=== PATIENT | male | born 1975 | race American Indian/Alaskan Native ===

== ENCOUNTER 2016-12-30 10:10 | Emergency (ER) | payer BC, OTHER ==
[2016-12-30 10:18] VITALS: BP 133/92
--- NOTE | 2016-12-30 13:28 | Emergency Department Report ---
ED ENT HPI - General Chief complaint: Dental/Oral Stated complaint: TOOTH PAIN/BROKEN Time Seen by Provider: 12/30/16 13:23 Source: patient Mode of arrival: Ambulatory Limitations: No Limitations - History of Present Illness Initial comments: 41-year-old male with past medical history none presents with complaint of fractured right upper premolar. Patient states he is attempting to see a dentist this Saturday has a scheduled appointment for possible canal. Patient denies any fever or chills no pus drainage from mouth no difficulty swallowing but states he has pain with chewing and pain radiating from the tooth. MD complaint: tooth pain Location: tooth # (5/6) Severity scale (0 -10): 6 Quality: sharp Consistency: constant Improves with: none Worsens with: none Context- Dental: history of dental caries Associated Symptoms: gum swelling - Related Data Previous Rx's Medication Instructions Recorded Last Taken Type Penicillin Vk [Veetids TAB] 500 mg PO QID #40 tablet 01/08/16 Unknown Rx Acetaminophen/Codeine 1 tab PO Q6H PRN #20 tab 12/30/16 Unknown Rx [Acetaminophen-Codeine #3 TAB] Amoxicillin 500 mg PO TID #30 capsule 12/30/16 Unknown Rx Chlorhexidine Mouthwash [Peridex] 20 ml MM TID #1 bottle 12/30/16 Unknown Rx Ibuprofen [Motrin 600 MG tab] 600 mg PO Q8H PRN #40 tablet 12/30/16 Unknown Rx Allergies Allergy/AdvReac Type Severity Reaction Status Date / Time No Known Allergies Allergy Verified 01/08/16 05:38 ED Dental HPI - General Chief complaint: Dental/Oral Stated complaint: TOOTH PAIN/BROKEN Time Seen by Provider: 12/30/16 13:23 Source: patient Mode of arrival: Ambulatory Limitations: No Limitations - Related Data Previous Rx's Medication Instructions Recorded Last Taken Type Penicillin Vk [Veetids TAB] 500 mg PO QID #40 tablet 01/08/16 Unknown Rx Acetaminophen/Codeine 1 tab PO Q6H PRN #20 tab 12/30/16 Unknown Rx [Acetaminophen-Codeine #3 TAB] Amoxicillin 500 mg PO TID #30 capsule 12/30/16 Unknown Rx Chlorhexidine Mouthwash [Peridex] 20 ml MM TID #1 bottle 12/30/16 Unknown Rx Ibuprofen [Motrin 600 MG tab] 600 mg PO Q8H PRN #40 tablet 12/30/16 Unknown Rx Allergies Allergy/AdvReac Type Severity Reaction Status Date / Time No Known Allergies Allergy Verified 01/08/16 05:38 ED Review of Systems ROS: Stated complaint: TOOTH PAIN/BROKEN Other details as noted in HPI Constitutional: denies: chills, fever Eyes: denies: eye pain, eye discharge, vision change ENT: denies: ear pain, throat pain Respiratory: denies: cough, shortness of breath, wheezing Cardiovascular: denies: chest pain, palpitations Endocrine: no symptoms reported Gastrointestinal: denies: abdominal pain, nausea, diarrhea Genitourinary: denies: urgency, dysuria Musculoskeletal: denies: back pain, joint swelling, arthralgia Skin: denies: rash, lesions Neurological: denies: headache, weakness, paresthesias Psychiatric: denies: anxiety, depression Hematological/Lymphatic: denies: easy bleeding, easy bruising ED Past Medical Hx - Past Medical History Previous Medical History?: No - Surgical History Past Surgical History?: No - Social History Smoking Status: Never Smoker Substance Use Type: Alcohol - Medications Home Medications: Home Medications Medication Instructions Recorded Confirmed Last Taken Type Penicillin Vk [Veetids TAB] 500 mg PO QID #40 tablet 01/08/16 Unknown Rx Acetaminophen/Codeine 1 tab PO Q6H PRN #20 tab 12/30/16 Unknown Rx [Acetaminophen-Codeine #3 TAB] Amoxicillin 500 mg PO TID #30 capsule 12/30/16 Unknown Rx Chlorhexidine Mouthwash [Peridex] 20 ml MM TID #1 bottle 12/30/16 Unknown Rx Ibuprofen [Motrin 600 MG tab] 600 mg PO Q8H PRN #40 tablet 12/30/16 Unknown Rx ED Physical Exam - General Limitations: No Limitations General appearance: alert, in no apparent distress - Head Head exam: Present: atraumatic, normocephalic - Eye Eye exam: Present: normal appearance, PERRL, EOMI - ENT ENT exam: Present: mucous membranes moist - Expanded ENT Exam Expanded Teeth exam: Present: dental caries, fractured tooth # (acute tooth #5/6, pulp visible), dental tenderness # (no dental abscess but gumline is sensitive) 1 - Fractured, Dental Tenderness - Neck Neck exam: Present: normal inspection - Respiratory Respiratory exam: Present: normal lung sounds bilaterally. Absent: respiratory distress - Cardiovascular Cardiovascular Exam: Present: regular rate, normal rhythm. Absent: systolic murmur, diastolic murmur, rubs, gallop - GI/Abdominal GI/Abdominal exam: Present: soft, normal bowel sounds - Rectal Rectal exam: Present: deferred - Extremities Exam Extremities exam: Present: normal inspection - Back Exam Back exam: Present: normal inspection - Neurological Exam Neurological exam: Present: alert, altered, oriented X3, CN II-XII intact, normal gait - Psychiatric Psychiatric exam: Present: normal affect, normal mood - Skin Skin exam: Present: warm, dry, intact, normal color. Absent: rash ED Course Vital Signs 12/30/16 10:15 Temperature 99.3 F Pulse Rate 60 Respiratory 16 Rate Blood Pressure 133/92 O2 Sat by Pulse 100 Oximetry ED Medical Decision Making - Medical Decision Making A/P: dental pain, fractured tooth 1-Motrin when necessary for pain, Tylenol No. 3 for pain 2- amoxicillin 500 3 times a day 7-10 days 3- peridex mouthwash 4-I advised patient to return to the ED if he develops any difficulty swallowing any trouble breathing any shortness of breath any trismus or drooling. 5- to is going to see a dentist this Saturday. Has appointment booked Critical care attestation.: If time is entered above; I have spent that time in minutes in the direct care of this critically ill patient, excluding procedure time. ED Disposition Clinical Impression: Pain, dental, Dental cavities Disposition: DISCHARGED TO HOME OR SELFCARE Is pt being admited?: No Does the pt Need Aspirin: No Condition: Stable Instructions: Toothache (ED), Dental Caries (ED) Prescriptions: Acetaminophen/Codeine [Acetaminophen-Codeine #3 TAB] 1 tab PO Q6H PRN #20 tab PRN Reason: Pain Amoxicillin 500 mg PO TID #30 capsule Ibuprofen [Motrin 600 MG tab] 600 mg PO Q8H PRN #40 tablet PRN Reason: Pain Chlorhexidine Mouthwash [Peridex] 20 ml MM TID #1 bottle Referrals: PRIMARY CARE, [Primary Care Provider] - 3-5 Days [facility] [Outside] - 3-5 Days Forms: Work/School Release Form(ED) Time of Disposition: 13:28
== END 2016-12-30 13:33 | disposition home or self-care (01) ==
LOC: ED 10:10
DX: K02.9 Dental caries, unspecified (principal)
CPT/HCPCS: 99282

== ENCOUNTER 2019-01-04 10:09 | Emergency (ER) | payer BC ==
--- NOTE | 2019-01-04 10:26 | Emergency Department Report ---
ED ENT HPI - General Chief complaint: Dental/Oral Stated complaint: TOOTHACHE Time Seen by Provider: 01/04/19 10:22 Source: patient Mode of arrival: Ambulatory Limitations: No Limitations - History of Present Illness Initial comments: Patient is 43 years old male with no significant past medical history. Patient presented to the ER complaining of left lower jaw pain and teeth pain since 3 days ago. Patient denied any fever, difficulty swallowing or difficulty breathing. MD complaint: tooth pain - Related Data Previous Rx's Medication Instructions Recorded Last Taken Type Penicillin Vk [Veetids TAB] 500 mg PO QID #40 tablet 01/08/16 Unknown Rx Acetaminophen/Codeine [Tylenol 1 tab PO Q6H PRN #20 tab 12/30/16 Unknown Rx /Codeine # 3 tab] Amoxicillin 500 mg PO TID #30 capsule 12/30/16 Unknown Rx Chlorhexidine Mouthwash [Peridex] 20 ml MM TID #1 bottle 12/30/16 Unknown Rx Ibuprofen [Motrin 600 MG tab] 600 mg PO Q8H PRN #40 tablet 12/30/16 Unknown Rx Allergies Allergy/AdvReac Type Severity Reaction Status Date / Time No Known Allergies Allergy Verified 01/08/16 05:38 ED Dental HPI - General Chief complaint: Dental/Oral Stated complaint: TOOTHACHE Time Seen by Provider: 01/04/19 10:22 Source: patient Mode of arrival: Ambulatory Limitations: No Limitations - Related Data Previous Rx's Medication Instructions Recorded Last Taken Type Penicillin Vk [Veetids TAB] 500 mg PO QID #40 tablet 01/08/16 Unknown Rx Acetaminophen/Codeine [Tylenol 1 tab PO Q6H PRN #20 tab 12/30/16 Unknown Rx /Codeine # 3 tab] Amoxicillin 500 mg PO TID #30 capsule 12/30/16 Unknown Rx Chlorhexidine Mouthwash [Peridex] 20 ml MM TID #1 bottle 12/30/16 Unknown Rx Ibuprofen [Motrin 600 MG tab] 600 mg PO Q8H PRN #40 tablet 12/30/16 Unknown Rx Allergies Allergy/AdvReac Type Severity Reaction Status Date / Time No Known Allergies Allergy Verified 01/08/16 05:38 ED Review of Systems ROS: Stated complaint: TOOTHACHE Other details as noted in HPI Comment: All other systems reviewed and negative Constitutional: denies: chills, fever Cardiovascular: denies: chest pain, palpitations Gastrointestinal: denies: abdominal pain, nausea, vomiting, diarrhea, constipation, hematemesis, melena, hematochezia Musculoskeletal: denies: back pain Neurological: denies: headache, weakness ED Past Medical Hx - Past Medical History Previous Medical History?: No - Surgical History Past Surgical History?: No - Social History Smoking Status: Never Smoker Substance Use Type: None - Medications Home Medications: Home Medications Medication Instructions Recorded Confirmed Last Taken Type Penicillin Vk [Veetids TAB] 500 mg PO QID #40 tablet 01/08/16 Unknown Rx Acetaminophen/Codeine [Tylenol 1 tab PO Q6H PRN #20 tab 12/30/16 Unknown Rx /Codeine # 3 tab] Amoxicillin 500 mg PO TID #30 capsule 12/30/16 Unknown Rx Chlorhexidine Mouthwash [Peridex] 20 ml MM TID #1 bottle 12/30/16 Unknown Rx Ibuprofen [Motrin 600 MG tab] 600 mg PO Q8H PRN #40 tablet 12/30/16 Unknown Rx ED Physical Exam - General Limitations: No Limitations General appearance: alert, in no apparent distress - Head Head exam: Present: atraumatic, normocephalic, normal inspection - Eye Eye exam: Present: normal appearance - ENT ENT exam: Present: normal orophraynx, mucous membranes moist, other (left lower dental caries) - Neck Neck exam: Present: normal inspection - Respiratory Respiratory exam: Present: normal lung sounds bilaterally - Cardiovascular Cardiovascular Exam: Present: regular rate, normal rhythm, normal heart sounds - GI/Abdominal GI/Abdominal exam: Present: soft, normal bowel sounds. Absent: distended, tenderness, guarding, rebound, rigid, organomegaly, mass, bruit, pulsatile mass - Extremities Exam Extremities exam: Present: normal inspection, full ROM - Neurological Exam Neurological exam: Present: alert, oriented X3, CN II-XII intact, normal gait, reflexes normal - Skin Skin exam: Present: warm, intact, normal color ED Course Vital Signs 01/04/19 10:16 Temperature 98.2 F Pulse Rate 63 Respiratory 16 Rate Blood Pressure 136/87 O2 Sat by Pulse 99 Oximetry Critical care attestation.: If time is entered above; I have spent that time in minutes in the direct care of this critically ill patient, excluding procedure time. ED Disposition Clinical Impression: Dental caries Disposition: DC-01 TO HOME OR SELFCARE Is pt being admited?: No Condition: Stable Instructions: Dental Caries (ED)
== END 2019-01-04 10:44 | disposition home or self-care (01) ==
LOC: ED 10:09
CPT/HCPCS: 99282